=== PATIENT | female | born 1985 | race Hispanic/Latino ===

== ENCOUNTER 2021-06-11 10:37 | Emergency (ER) | payer OTHER ==
[~2021-06-11] VITALS: Ht 167.6 cm; Wt 113.4 kg
[2021-06-11] MEDS ORDERED: CYCLOBENZAPRINE10 MG PO (12:00)
[2021-06-11] MEDS ORDERED: KETOROLAC TROMETHAMINE 60 MG/2 ML VIAL IM ONE (12:00)
[2021-06-11] MEDS ORDERED: NAPROSYN500 MG PO (12:01)
[2021-06-11] MEDS ORDERED: FIORICET 50-301 EACH PO (12:03)
== END 2021-06-11 12:17 | disposition home or self-care (01) ==
LOC: FSED 10:58
DX: S16.1XXA Strain of muscle, fascia and tendon at neck level, initial encounter (principal); S39.012A Strain of muscle, fascia and tendon of lower back, initial encounter; R51.9 Headache, unspecified; V53.5XXA Driver of pick-up truck or van injured in collision with car, pick-up truck or van in traffic accident, initial encounter; Y92.488 Other paved roadways as the place of occurrence of the external cause
CPT/HCPCS: 81003; 81025; 99282